=== PATIENT | female | born 1970 | race Caucasian/White ===

== ENCOUNTER 2016-08-06 16:46 | Outpatient (CLI) | payer OTHER | END 2016-08-06 16:47 | disposition home or self-care (01) | DX: G43.019 Migraine without aura, intractable, without status migrainosus (principal) ==

== ENCOUNTER 2019-05-19 12:16 | Outpatient (CLI) | payer OTHER ==
--- NOTE | 2019-05-19 16:44 | MRI Report ---
Reason: PAIN IN LT SHOULDER Procedure Date: 05/19/2019 Accession Number: [id number] / [id number] Procedure: MRI - Shoulder LT W/O CPT Code: Final Report FULL RESULT: EXAM: LEFT SHOULDER MRI WITHOUT CONTRAST EXAM DATE: 05/19/2019 12:42 PM. CLINICAL HISTORY: Left shoulder pain. COMPARISON: None. TECHNIQUE: Multiplanar, multisequence T1-weighted and fluid-sensitive sequences of the shoulder without contrast. Other: None. FINDINGS: Acromioclavicular Region: The acromion is type II. The acromioclavicular joint is unremarkable. The coracoacromial and coracoclavicular ligaments are intact. No subacromial/subdeltoid bursal fluid. Glenohumeral Region: No subluxation. No effusion or loose bodies. The articular cartilage is unremarkable. The glenohumeral ligaments and joint capsule are unremarkable. Bone Marrow: No fracture, marrow edema or bone lesions. Labrum: There is a linear, mildly T2 hyperintense focus at the anterior and anterior inferior aspects of the labrum. Musculature/Rotator Cuff: There is supraspinatus tendinosis. The infraspinatus, teres minor, and subscapularis tendons are unremarkable. No rotator cuff tear. No edema or fatty atrophy. Biceps Tendon: The long head of the biceps tendon and biceps yan are intact. Other: The subcutaneous tissues are unremarkable. IMPRESSION: 1. Linear, mildly T2 hyperintense focus at the anterior and anterior inferior aspects of the labrum suspicious for a tear. If warranted, further evaluation with a follow-up MR arthrogram exam may be helpful. 2. Supraspinatus tendinosis. 3. No rotator cuff tear. RADIA
== END 2019-05-19 12:17 | disposition home or self-care (01) ==
LOC: DI 12:16
PROVIDERS: ATTEND General Practice
DX: M75.92 Shoulder lesion, unspecified, left shoulder (principal)

== ENCOUNTER 2019-07-21 10:03 | Outpatient (CLI) | payer OTHER ==
[2019-07-21] MEDS ORDERED: IOTHALAMATE MEGLUMINE 50 ML VIAL ONE (10:12)
[2019-07-21] MEDS ORDERED: BUFFERED LIDOCAINE 10 ML SYRINGE ONE (10:12)
[2019-07-21] MEDS ORDERED: GADOBUTROL 10 MMOL/10 ML VIAL ONE (10:12)
[2019-07-21] MEDS ORDERED: GADOBUTROL 10 MMOL/10 ML VIAL IVP ONE (11:28)
[2019-07-21] MEDS ORDERED: IOTHALAMATE MEGLUMINE 50 ML VIAL IVP ONE (11:28)
[2019-07-21] MEDS ORDERED: BUFFERED LIDOCAINE 10 ML SYRINGE IU ONE (11:59)
--- NOTE | 2019-07-21 15:02 | MRI Report ---
Reason: PAIN IN LT SHOULDER Procedure Date: 07/21/2019 Accession Number: [id number] / [id number] Procedure: MRI - Arthrogram Shoulder LT CPT Code: Final Report FULL RESULT: EXAM: LEFT SHOULDER MRI ARTHROGRAM WITH CONTRAST. EXAM DATE: 07/21/2019 11:57 AM. CLINICAL HISTORY: Pain in left shoulder. COMPARISON: SHOULDER LT W/O 05/19/2019 12:42 PM. TECHNIQUE: Multiplanar, multisequence T1-weighted and fluid-sensitive sequences of the shoulder after an arthrographic injection of dilute gadolinium, dictated under a separate exam. Other: None. FINDINGS: Rotator cuff: Mild thickening and increased T2 signal involving the distal supraspinatus and upper infraspinatus. No rotator cuff tear identified. No rotator cuff muscle atrophy or fatty replacement. Long head biceps tendon: Intact demonstrating normal course, signal and morphology. Labrum: Contrast filling tear at the base of the inferior and anteroinferior labrum. Punctate inferior paralabral cyst. Bones and articular surfaces: No significant articular cartilage defects are seen. Acromioclavicular joint: Unremarkable. Type II acromion. IMPRESSION: 1. Tear at the base of the inferior and anteroinferior labrum with punctate inferior paralabral cyst. 2. Mild supraspinatus and upper infraspinatus tendinosis. RADIA
--- NOTE | 2019-07-21 15:37 | XRAY Report ---
Reason: PAIN IN LT SHOULDER Procedure Date: 07/21/2019 Accession Number: [id number] / [id number] Procedure: FL - Arthrogram Needle Placement CPT Code: Final Report FULL RESULT: EXAM: LEFT SHOULDER ARTHROGRAPHIC INJECTION WITH FLUOROSCOPIC GUIDANCE EXAM DATE: 07/21/2019 11:23 AM. CLINICAL HISTORY: PAIN IN LT SHOULDER. COMPARISON: ARTHROGRAM SHOULDER LT 07/21/2019 10:21 AM. TECHNIQUE: The risks, benefits, and alternatives of the procedure were discussed with the patient. All questions were answered. Written and verbal consent were obtained. The left glenohumeral joint was marked under fluoroscopy and prepped and draped in a sterile manner. Local anesthesia was performed with 1% lidocaine. A 22-gauge needle was then inserted into the glenohumeral joint. 10 mL of a solution containing 25% 1% lidocaine, 25% iodinated contrast, and a 1:200 dilution of gadolinium contrast in sterile saline was then injected. The needle was removed without immediate complication. Other: None. Fluoroscopy Time: 10 seconds. Number of Images: 2. FINDINGS: Bones and joints: No fracture or subluxation. Injection: Fluoroscopic images demonstrate needle placement and contrast in the glenohumeral joint. IMPRESSION: Successful fluoroscopically guided arthrographic injection of the left shoulder. RADIA
== END 2019-07-21 10:04 | disposition home or self-care (01) ==
LOC: DI 10:03
PROVIDERS: ATTEND General Practice
DX: S43.492A Other sprain of left shoulder joint, initial encounter (principal); M67.912 Unspecified disorder of synovium and tendon, left shoulder
CPT/HCPCS: 23350; 73222; 77002; A9585; Q9961

== ENCOUNTER 2020-04-15 12:42 | Outpatient (CLI) | payer OTHER ==
--- NOTE | 2020-04-18 11:05 | Mammography Report ---
BILATERAL DIGITAL SCREENING MAMMOGRAM 3D/2D: 04/15/2020 CLINICAL: Routine screening. Comparison is made to exams dated: 04/14/2019 mammogram, 02/27/2018 mammogram, and 02/19/2017 mammogr [facility]. The tissue of both breasts is heterogeneously dense. This may lower the se nsitivity of mammography. No significant masses, calcifications, or other findings are seen in either breast. There has been no significant interval change. IMPRESSION: NEGATIVE There is no mammographic evidence of malignancy. A 1 year screening mammogram is recommended. This exam was interpreted at Station ID: [id number]. NOTE: For mammograms, a report in lay terms will be sent to the patient. Approximately 15% of breast malignancies will not be visualized mammographically. In the management of a palpable breast mass, a negative mammogram must not discourage biopsy of a clinically suspicious lesion. Electronically Signed By: Rhona welch/[email or web address]:04/15/2020 14:52:22 ACR BI-RADS Category 1: Negative 3341F PARENCHYMAL PATTERN: (D) - The breast(s) demonstrate(s) heterogeneously dense fibroglandular arik velasco. BI-RADS CATEGORY: (1) - 1 RECOMMENDATION: (ANNUAL) - Recommend routine annual screening mammography. [id number] 1 year screening LATERALITY: (B)
== END 2020-04-15 12:43 | disposition home or self-care (01) ==
LOC: DI.N 12:42
DX: Z12.31 Encounter for screening mammogram for malignant neoplasm of breast (principal)
CPT/HCPCS: 77067

== ENCOUNTER 2022-03-19 10:55 | Outpatient (CLI) | payer OTHER ==
[2022-03-19 20:30] VITALS: BP 102/72
--- NOTE | 2022-03-19 20:30 | SLEEP CARE CONSULTATION ---
Information from patient questionnaire entered by Melani Bansal. I have reviewed and concur with the information entered by Melani Bansal. This document represents the service I personally performed and the decisions made by me, Shiva Damon MD, [facility]. History of Present Illness Service Date and Time: 03/19/2022 1055 Reason for Visit: New patient Chief Complaint: reports: Insomnia, Unrefreshed sleep, Snoring, Excessive daytime sleepiness, Fatigue, Frequent awakenings at night Date of Onset: at least 7 or more years Usual bedtime: 2100 Time it takes to fall asleep: 30-45 mins Snores at night: Yes Observed to quit breathing while asleep: No Sleeps alone due to snoring: No Number of times waking at night: at least 5, usually more Reasons for waking at night: reports: Pain, Bathroom, Other (noise, thinking too much, uncomfortable, too hot) Toss, Turn, or Twitch while sleeping: Yes Recalls having dreams: Yes (don't remember them ) Usually gets out of bed at: 0500 Feels refreshed in the morning: No Morning headache: Yes (occasionally, resolves by midday ) Sleepy or fatigued during the day: No (not in years ) Ever fallen asleep while driving: No Takes day naps: No Dreams during day naps: No Prior sleep studies: No Additional HPI information: I have the pleasure of seeing Ms. Hyatt today regarding the possibility of her having obstructive sleep apnea. As you know, she is a 52-year-old lady who complains of insomnia, frequent awakenings, loud snore, unrefreshed sleep, persistent fatigue, and excessive daytime sleepiness for at least 7 years. The patient tells me that she normally goes to bed around 9 pm, and it takes her approximately 30 - 45 minutes to fall asleep. She occasionally takes Advil PM. She has been told that she snores loudly and irregularly at night. She has never been observed to stop breathing in her sleep. She can recall waking up on the average of 5 times during the night. Most of the time she wakes up because of having to use the bathroom and pain. She has awakened occasionally because of her own snoring, but not choking, or having to gasp for air. There is a lot of tossing and turning in her sleep. She has somniloquy (sleep talking) but not somnambulism (sleep walking). Generally, she can recall having dreams. In the morning she usually gets up out of the bed around 5 - 8 a.m. not feeling refreshed nor rested. She usually does not have a morning headache. During the day she complains of feeling sleepy and fatigued. Her score on Edison Sleepiness Scale is 8 out of 24. She never has fallen asleep while driving nor has had any accident due to sleepiness. She usually does not take naps during the day. She has restless leg syndrome. She reports having impaired concentration during the day. 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 Patient is and lives in [place]. Have you smoked in the past 12 months: No Alcohol use: Yes Alcohol amount and frequency: 1-2 drinks, 1-2 times per week Caffeine use: Yes Caffeine amount and frequency: 1-2 drinks, 1-2 times per day Family History Family history of sleep disordered breathing: Yes Family Hx Sleep Apnea: Mother: Snoring, Father: Snoring, Sleep apnea - Untreated, Sibling: Snoring, Grandparent: Snoring Allergies and Home Medications Known drug allergies: No Drug allergies reviewed: Yes Home medication list reviewed: Yes Allergy and home medication list: Allergies No Known Drug Allergies Allergy (Verified 03/23/16 10:35) Review of Systems Weight gain over past 5 years: 15 Cardiovascular: reports: irregular heart rate or pulse Respiratory: denies: shortness of breath, wheeze, sputum production, chronic cough, other Gastrointestinal: denies: heartburn, difficulty swallowing, nausea, vomitting, diarrhea, abdominal pain, other Urinary: denies: incontinence, frequency, urgency, impotence, other Neurological: reports: headaches Psychiatric: denies: Attention Deficit Hyperactivity, anxiety, depression, mood disorder, claustrophobia, other Ear/Nose/Throat: denies: nasal congestion, sinus problems, nose bleeds, dry mouth/throat, hoarseness, injury to nose, tonsillectomy, wisdom teeth removed, other Endocrine: reports: sluggishness, too hot or cold Musculoskeletal: reports: joint pain, neck pain, back pain, joint swelling Immunologic: denies: sneezing, rash, itching, allergies to food or environment, other Physical Exam Vital signs obtained and entered by: HERMES YANEZ Blood Pressure: 102/72 (left arm ) Heart Rate: 86 O2 Saturation: 95 Height: 5 ft 4 in Weight: 131 lb Body Mass Index: 22.4 BMI Classification: Normal Neck circumference: 13 (inches ) Mood/affect: Normal HEENT: No craniofacial malformation Nostrils: patent to airflow Turbinates: normal Septum: midline Mouth and throat: narrow oropharynx Soft palate: long Hard palate: normal Uvula: normal Uvula visualization: 50% Mallampati Class II Tongue: normal in size Tonsils: small Chin and jaw: normal size and position Neck: normal w/o lymphadenopathy or thyromegaly Heart: regular rate and rhythm Lungs: clear bilaterally Extremities: no edema or clubbing Neurologic: intact Impression and Plan IMPRESSION: 1. Obstructive Sleep Apnea-Hypopnea Syndrome, as evident by history of loud and irregular snoring, frequent awakenings during the night, unrefreshed sleep, cognitive impairment, and daytime hypersomnolence. Narrow oropharynx is a common predisposing factor for obstructive sleep apnea-hypopnea syndrome. I recommend proceeding to polysomnography to confirm the diagnosis and to assess severity. I informed the patient of what the sleep studies involve and after some discussion, she agreed to proceed. 2. Insomnia. Her sleep onset insomnia most likely is due to the large difference in her wakeup time between week nights and weekends. To resolve the problem, she is advised to keep her wakeup time constant. This problem will probably go away next summer when she retires from the [employer]. The frequent awakenings during the night will be further evaluated by the in-laboratory polysomnography. Plan: 1. Schedule polysomnography and return in 1 to 2 weeks after the study to discuss result and initiate therapy. 2. Maintain a regular wake up time and spend no more than 8 hours in bed at night. Avoid naps. 3. Avoid alcohol, sedative and muscle relaxant around bedtime. Follow up with Sleep Care in: 1-2 months Visit Type: In Office Time Spent with Patient (minutes): 15 Provider Statement: I spent 100% of the Face to Face Visit with the patient with greater than 50% spent counseling the patient and coordination of care.
== END 2022-03-19 10:56 | disposition home or self-care (01) ==
LOC: SC 10:55
PROVIDERS: ATTEND Internal Medicine Pulmonary Disease
DX: R06.83 Snoring (principal); G47.8 Other sleep disorders; G47.10 Hypersomnia, unspecified; R53.83 Other fatigue
CPT/HCPCS: 99202; 99212

== ENCOUNTER 2022-05-07 19:31 | Outpatient (CLI) | payer OTHER | END 2022-05-07 19:32 | disposition home or self-care (01) | LOC: SC 19:31 | PROVIDERS: ATTEND Internal Medicine Pulmonary Disease | DX: R06.83 Snoring (principal); G47.8 Other sleep disorders; G47.10 Hypersomnia, unspecified; R53.83 Other fatigue | CPT/HCPCS: 95810 ==

== ENCOUNTER 2022-05-21 14:01 | Outpatient (CLI) | payer OTHER ==
[2022-05-21 18:16] VITALS: BP 126/78
--- NOTE | 2022-05-21 18:16 | SLEEP CARE CONSULTATION ---
Information from patient questionnaire entered by Ellen Love. I have reviewed and concur with the information entered by Ellen Love. This document represents the service I personally performed and the decisions made by me, Shiva Damon MD, [facility]. History of Present Illness Service Date and Time: 05/21/2022 1401 Initial [place] Sleepiness Scale score: 8 (10-16-22) Current [place] Sleepiness Scale score: 9 (05/21/22) Additional HPI information: Ms. Hyatt returned for follow up of the sleep study she had on 05/07/2022. The polysomnography showed that the patient had slightly reduced sleep efficiency due to a few awakenings during the night. The sleep architecture was normal. Respiratory monitoring showed no significant sleep disordered breathing (AHI = 1.1) or hypoxia (desirae oxygen saturation of 92%). The patient slept adequately in supine position (supine AHI = 3.1; non-supine = 0.62). No audible snore. There was no significant periodic leg movement of sleep. Cardiac rhythm was normal sinus rhythm without significant arrhythmia. No abnormal behavior (parasomnia) observed during the night. The patient was informed of these findings. I explained to her that the sleep study was normal. The patient disagreed and said she lay awake almost throughout the sleep study. Sleep Study - Results Type of Sleep Study: Polysomnography (COMPLETED 05/07/22) Prior sleep studies: No Allergies and Home Medications Drug allergies reviewed: Yes Home medication list reviewed: Yes Allergy and home medication list: Allergies No Known Drug Allergies Allergy (Verified 03/23/16 10:35) Review of Systems Review of systems same as previous: Yes Physical Exam Vital signs obtained and entered by: ELLEN Kothari MA Blood Pressure: 126/78 (LEFT ARM) Cuff size: regular Heart Rate: 79 O2 Saturation: 98 Height: 5 ft 4 in Weight: 134 lb Body Mass Index: 23.0 BMI Classification: Normal Impression and Plan IMPRESSION: 1. Insomnia, due to sleep state misperception a condition where one underestimates how much one actually sleeps. It is also called paradoxical insomnia or subjective insomnia. I went back to look at her EEG during the sleep study, and she was definitely asleep most of the time. She had normal amount of REM and slow wave sleep (N3)--the stages of sleep that are distinctly different from awake. Even the video showed her lying motionless for hours at a time. This is confirmed by the fact that she is not sleepy during the day (she says that she cannot fall asleep during the day even when she goes lie down). Her [place]ano Sleepiness Scale score of 9 is overrated and should have been 0 because there is no chance of her falling asleep during the day. What she is complaining of appears to be fatigue which can have many causes besides sleep. PLAN: 1. Follow up with her primary care provider for further evaluation of fatigue. 2. Return to the sleep clinic on as needed basis. Follow up with Sleep Care in: as needed Visit Type: In Office Time Spent with Patient (minutes): 15 Provider Statement: I spent 100% of the Face to Face Visit with the patient with greater than 50% spent counseling the patient and coordination of care.
== END 2022-05-21 14:02 | disposition home or self-care (01) ==
LOC: SC 14:01
PROVIDERS: ATTEND Internal Medicine Pulmonary Disease
DX: F51.03 Paradoxical insomnia (principal)
CPT/HCPCS: 99212

== ENCOUNTER 2022-07-09 07:01 | Outpatient (CLI) | payer OTHER ==
--- NOTE | 2022-07-09 10:58 | MRI Report ---
PROCEDURE: BRAIN W/WO INDICATIONS: HEADACHE CONTRAST: Gadavist 5.7ml TECHNIQUE: Noncontrast axial T1 spin echo, axial T2 fast spin echo, sagittal and axial FLAIR, coronal T2 fast sp in echo, axial gradient echo, axial diffusion and ADC through the brain. After the administration of contrast, axial and coronal T1 spin echo with fat saturation through the brain. COMPARISON: None. FINDINGS: Image quality: Excellent. CSF spaces: Basal cisterns are patent. No extra-axial fluid collections. Ventricles are normal in size and shape. Brain: No restricted diffusion. No unexpected intracranial enhancement or susceptibility. Midline str uctures normal in configuration. No mass effect or midline shift. Skull and face: Calvarial marrow is normal in signal. Orbits appear normal. Sinuses: Sinuses and mastoids appear clear. IMPRESSION: Normal MRI of the brain. Reviewed by: Tomas Baxter MD on 07/09/2022 10:57 AM PDT Approved by: Tomas Baxter MD on 07/09/2022 10:57 AM PDT Station ID: [id number]
== END 2022-07-09 07:02 | disposition home or self-care (01) ==
LOC: DI 07:01
DX: R51.0 Headache with orthostatic component, not elsewhere classified (principal)
CPT/HCPCS: 70553; A9585

== ENCOUNTER 2022-11-08 07:04 | Outpatient (CLI) | payer OTHER ==
--- NOTE | 2022-11-08 13:16 | MRI Report ---
PROCEDURE: MRV BRAIN VENOUS WO INDICATIONS: HEADACHE TECHNIQUE: Sagittal T1 spin echo through the brain. Coronal 2D [id number] MR venogram, with 3-dimensional m qgrbsu-nazvnflwk-mvofutomqa (MIP) reformats of the intracranial veins then performed. COMPARISON: None FINDINGS: Image quality: Excellent. Veins: Sagittal, straight, transverse, and sigmoid sinuses all appear patent. Brain: Limited images through the brain parenchyma show no intracranial bleeds or mass effects. IMPRESSION: Negative cerebral MR angiography. Reviewed by: Asya Urbina MD on 11/08/2022 1:15 PM PDT Approved by: Asya Urbina MD on 11/08/2022 1:15 PM PDT Station ID: [id number]
== END 2022-11-08 07:05 | disposition home or self-care (01) ==
LOC: DI 07:04
PROVIDERS: ATTEND Psychiatry & Neurology Neurology
DX: R51.9 Headache, unspecified (principal)